=== PATIENT | female | born 1995 | race African-American/Black ===

== ENCOUNTER 2019-07-23 13:28 | Emergency (ER) | payer MEDICAID ==
[~2019-07-23] VITALS: Ht 162.6 cm; Wt 60.5 kg
[2019-07-23] MEDS ORDERED: LEVE500T53 PO (13:35)
[2019-07-23 14:55] VITALS: BP 121/77
== END 2019-07-23 15:00 | disposition home or self-care (01) ==
LOC: EMS 13:33
DX: K08.89 Other specified disorders of teeth and supporting structures (principal)